=== PATIENT | male | born 1935 | race Caucasian/White ===

== ENCOUNTER 2023-12-07 10:31 | Inpatient (IN) | payer BC, MEDICARE, OTHER ==
[2023-12-07 10:49] LABS: BASOPHILS ABSOLUTE AUTO 0.01 K/uL (0.00-0.20); BASOPHILS PERCENT AUTO 0.2 % (0.0-1.0); EOSINOPHILS ABSOLUTE AUTO 0.22 K/uL (0.00-0.45); EOSINOPHILS PERCENT AUTO 4.9 % (0.0-6.0); HEMOGLOBIN 16.2 g/dL (14.0-18.0); IMMATURE GRAN ABSOLUTE AUTO 0.02 K/uL (0.00-0.05); IMMATURE GRAN PERCENT AUTO 0.4 % (0.0-0.4); LYMPHOCYTES ABSOLUTE AUTO 1.05 K/uL (1.00-4.80); LYMPHOCYTES PERCENT AUTO 23.2 % (24.0-44.0); MEAN CORPUSCULAR HGB CONC 34.5 g/dL (32.0-36.0); MEAN CORPUSCULAR VOLUME 95.7 fL (83.0-99.0); MEAN PLATELET VOLUME 9.8 fL (9.4-12.4); MONOCYTES ABSOLUTE AUTO 0.64 K/uL (0.00-0.80); MONOCYTES PERCENT AUTO 14.1 % (0.0-8.0); NEUTROPHILS ABSOLUTE AUTO 2.59 K/uL (1.80-7.70); NEUTROPHILS PERCENT AUTO 57.2 % (41.0-71.0); PLATELET COUNT,PLT 179 K/uL (150-400); RED BLOOD CELL COUNT 4.91 M/uL (4.52-5.90); WHITE BLOOD CELL COUNT,WBC 4.53 K/uL (3.9-11.3)
[2023-12-07 11:08] LABS: INR 1.04 (0.86-1.11); PTT,PARTIAL THROMBOPLSTIN TIME 25.4 SEC (23.9-30.7)
[2023-12-07 11:15] LABS: A/G RATIO 0.9 (0.9-1.6); ALBUMIN 3.7 g/dL (3.4-5.0); BILIRUBIN TOTAL 0.7 mg/dL (0.2-1.0); CALCIUM 9.3 mg/dL (8.5-10.1); CREATININE 1.6 mg/dL (0.8-1.3); EST CRCL DRUG DOSING (CG) 32.06 mL/min; POTASSIUM,K 4.3 mmol/L (3.5-5.1); PROTEIN TOTAL,TP 7.8 g/dL (6.4-8.2)
[2023-12-07] MEDS: Iopamidol 755 Mg/ML 100 ML Bottle IVPUSH ONE (11:20)
[2023-12-07] MEDS: Aspirin 81 MG Tab.Chew PO ONE (12:11)
[2023-12-07] MEDS: Clopidogrel 75 MG Tab PO ONE (12:12)
[2023-12-07] MEDS ORDERED: Acetaminophen 325 MG Tab PO PRN (13:42)
[2023-12-07] MEDS ORDERED: Ondansetron 4 MG Tab.DIS PO PRN (13:42)
[2023-12-07 14:13] LABS: HEMOGLOBIN A1C 5.4 %
[2023-12-07 14:41] LABS: TSH ULTRASENSITIVE 1.5 uIU/mL (0.36-3.74)
[2023-12-07] MEDS: Pantoprazole 40 MG Tab.CR PO SCH (15:56)
[2023-12-08 05:35] LABS: BASOPHILS ABSOLUTE AUTO 0.01 K/uL (0.00-0.20); BASOPHILS PERCENT AUTO 0.2 % (0.0-1.0); EOSINOPHILS ABSOLUTE AUTO 0.17 K/uL (0.00-0.45); HEMATOCRIT 41.1 % (42.0-52.0); HEMOGLOBIN 14.8 g/dL (14.0-18.0); LYMPHOCYTES ABSOLUTE AUTO 1.12 K/uL (1.00-4.80); LYMPHOCYTES PERCENT AUTO 26.4 % (24.0-44.0); MEAN CORPUSCULAR HEMOGLOBIN 33.7 pg (28.0-32.0); MEAN CORPUSCULAR VOLUME 93.6 fL (83.0-99.0); MEAN PLATELET VOLUME 9.6 fL (9.4-12.4); MONOCYTES ABSOLUTE AUTO 0.55 K/uL (0.00-0.80); NEUTROPHILS ABSOLUTE AUTO 2.39 K/uL (1.80-7.70); NEUTROPHILS PERCENT AUTO 56.4 % (41.0-71.0); PLATELET COUNT,PLT 138 K/uL (150-400); RED BLOOD CELL COUNT 4.39 M/uL (4.52-5.90); WHITE BLOOD CELL COUNT,WBC 4.24 K/uL (3.9-11.3)
[2023-12-08 06:00] LABS: A/G RATIO 0.9 (0.9-1.6); ALBUMIN 3.1 g/dL (3.4-5.0); BILIRUBIN TOTAL 0.9 mg/dL (0.2-1.0); CALCIUM 8.7 mg/dL (8.5-10.1); CARBON DIOXIDE,CO2 26.7 mmol/L (21.0-32.0); CREATININE 1.4 mg/dL (0.8-1.3); EST CRCL DRUG DOSING (CG) 39.11 mL/min; POTASSIUM,K 3.9 mmol/L (3.5-5.1); PROTEIN TOTAL,TP 6.6 g/dL (6.4-8.2)
[2023-12-08] MEDS: Clopidogrel 75 MG Tab PO SCH (09:06)
[2023-12-08] MEDS: Aspirin 81 MG Tab.Chew PO SCH (09:06)
[2023-12-08] MEDS: Gadobenate Dimeglumine 529 MG/ML 20 ML SDV IVPUSH STA ×2 (09:55→09:59)
[2023-12-08] MEDS ORDERED: Cefdinir 300 MG Cap PO ONE (11:24)
[2023-12-08] MEDS: Heparin Sodium 5,000 Units/ML Vial SUBCUT SCH (14:08)
[2023-12-08] MEDS: atorvaSTATin 40 MG Tab PO SCH (19:44)
[2023-12-09 06:15] LABS: BASOPHILS ABSOLUTE AUTO 0.01 K/uL (0.00-0.20); BASOPHILS PERCENT AUTO 0.2 % (0.0-1.0); EOSINOPHILS ABSOLUTE AUTO 0.17 K/uL (0.00-0.45); EOSINOPHILS PERCENT AUTO 4.1 % (0.0-6.0); HEMATOCRIT 41.9 % (42.0-52.0); HEMOGLOBIN 14.7 g/dL (14.0-18.0); IMMATURE GRAN ABSOLUTE AUTO 0.03 K/uL (0.00-0.05); IMMATURE GRAN PERCENT AUTO 0.7 % (0.0-0.4); LYMPHOCYTES ABSOLUTE AUTO 1.19 K/uL (1.00-4.80); MEAN CORPUSCULAR HEMOGLOBIN 32.7 pg (28.0-32.0); MEAN CORPUSCULAR HGB CONC 35.1 g/dL (32.0-36.0); MEAN CORPUSCULAR VOLUME 93.3 fL (83.0-99.0); MONOCYTES PERCENT AUTO 12.2 % (0.0-8.0); NEUTROPHILS PERCENT AUTO 53.8 % (41.0-71.0); PLATELET COUNT,PLT 145 K/uL (150-400); RED BLOOD CELL COUNT 4.49 M/uL (4.52-5.90)
[2023-12-09 06:37] LABS: CALCIUM 8.7 mg/dL (8.5-10.1); CARBON DIOXIDE,CO2 25.7 mmol/L (21.0-32.0); CREATININE 1.3 mg/dL (0.8-1.3); EST CRCL DRUG DOSING (CG) 42.12 mL/min; POTASSIUM,K 3.8 mmol/L (3.5-5.1)
[2023-12-09] MEDS: Finasteride 5 MG Tab PO SCH (10:06)
[2023-12-09] MEDS: Propranolol 60 MG Cap.ER PO SCH (10:09)
[2023-12-09] MEDS: Fluticasone NASAL Spray 16 GM Bottle NASBOTH SCH (10:17)
[2023-12-09 11:35] VITALS: BP 134/70; PULSE 86
== END 2023-12-09 12:22 | disposition home or self-care (01) | DRG 65 ==
LOC: MW.ED 10:31 → MW.MS 12:02 → INTOOBSV 12:02 → OBSVTOIN 12:02 → MW.MS 12-08 06:09
PROVIDERS: ADMIT Internal Medicine; ATTEND Internal Medicine
DX: I63.9 Cerebral infarction, unspecified (principal); I63.40 Cerebral infarction due to embolism of unspecified cerebral artery; G81.94 Hemiplegia, unspecified affecting left nondominant side; K21.9 Gastro-esophageal reflux disease without esophagitis; I10 Essential (primary) hypertension; R29.701 NIHSS score 1; M54.17 Radiculopathy, lumbosacral region; G62.9 Polyneuropathy, unspecified; R25.1 Tremor, unspecified; I35.1 Nonrheumatic aortic (valve) insufficiency; I77.810 Thoracic aortic ectasia; Z88.8 Allergy status to other drugs, medicaments and biological substances; Z79.82 Long term (current) use of aspirin; Z79.899 Other long term (current) drug therapy
CPT/HCPCS: 36415; 70450; 70496; 70498; 80053; 80061; 82607; 82947; 83036; 83735; 84443; 84484; 85025; 85610; 85730; 93005; 99285; A9270 ×2; Q9967; 70553; 70553-26; 80048; 93010; 93246; 93306; 97162-GP; 97165-GO; 99223; 99232; 99238; A9577; G0378; J1644